=== PATIENT | male | born 1965 | race African-American/Black ===

== ENCOUNTER 2016-12-13 23:55 | Inpatient (IN) | payer OTHER ==
[~2016-12-13] VITALS: Ht 172.7 cm; Wt 118.3 kg
[2016-12-14 01:13] LABS: HEMATOCRIT 35.5 % (38.0-50.0); MCH 32.1 PG (29.0-34.0); MCHC 32.4 G/DL (30.0-36.0); MCV 99.2 FL (86-99); MEAN PLAT.VOLUME 10.9 uM^3 (9.0-12.4); PLATELET COUNT 188 K/uL (156-360); RBC DIS.WIDTH-CV 12.1 % (11.8-14.6); RBC DIS.WIDTH-SD 44.3 % (39-53); RED BLOOD COUNT 3.58 M/uL (4.00-5.50); WHITE BLOOD COUNT 14.1 K/uL (4.1-10.2)
[2016-12-14 01:19] LABS: CHLORIDE 102 mEq/L (99-109); POTASSIUM 3.5 mEq/L (3.7-5.4); SODIUM 137 mEq/L (136-147)
[2016-12-14 01:20] LABS: GLUCOSE 126 mg/dL (70-99)
[2016-12-14 01:22] LABS: ANION GAP 7 MEQ/L (2-14)
[2016-12-14 01:24] LABS: GFR ESTIMATE (CALCULATED) > 59 mL/min/
[2016-12-14 01:25] LABS: UREA NITROGEN (BUN) 11 mg/dL (9-23)
[2016-12-14 02:36] LABS: ADD MIUA? NO; BILIRUBIN NEGATIVE; BLOOD NEGATIVE; COLOR YELLOW ((YELLOW)); GLUCOSE (STRIP) NEGATIVE; KETONES NEGATIVE; LEUKOCYTES NEGATIVE; NITRITE NEGATIVE; PROTEIN (STRIP) NEGATIVE; SPECIFIC GRAVITY 1.014 (1.000-1.030); UCUL ADDED? NO; UROBILINOGEN 0.2 MG/DL (0.2-1.0)
[2016-12-14 07:24] LABS: Estimated Average Glucose 105 mg/dL (70-123); HEMOGLOBIN A1c (GLYCOHEMOGLOB) 5.3 % HGB (Below 5.7)
[2016-12-14 08:09] LABS: ALKALINE PHOSPHATASE 48 IU/L (3-129); DIRECT BILIRUBIN 0.1 mg/dL (0.0-0.3); SAMPLE HEMOLYSIS CHECK 0; SAMPLE ICTERIC CHECK 0; SAMPLE LIPEMIA CHECK 0; TOTAL BILIRUBIN 0.4 MG/DL (0.0-1.0)
[2016-12-14] MEDS ORDERED: FLEXERIL10 MG PO (08:52)
[2016-12-14] MEDS ORDERED: ZOFRAN4 MG PO (08:56)
[2016-12-14] MEDS ORDERED: PERCOCET 7.51 TABLET PO (08:58)
[2016-12-14] MEDS ORDERED: NORVASC10 MG PO (09:00)
[2016-12-14] MEDS ORDERED: METFORMIN HCL500 MG PO (09:01)
[2016-12-14] MEDS ORDERED: LOPRESSOR50 MG PO (09:02)
[2016-12-14] MEDS ORDERED: HYDROCHLOROTHIA25 MG PO (09:03)
[2016-12-14] MEDS ORDERED: DICLOFENAC SODI75 MG PO (09:04)
[2016-12-14] MEDS ORDERED: NEURONTIN300 MG PO (09:05)
[2016-12-14] MEDS ORDERED: ZOCOR10 MG PO (09:06)
[2016-12-14] MEDS ORDERED: PROAIR HFA8.5 GM IH (09:08)
[2016-12-14 14:47] VITALS: BP 130/73
[2016-12-14 17:00] LABS: POINT-OF-CARE METER ID UU14117124
[2016-12-14 17:49] LABS: POINT-OF-CARE METER ID UU14208753
[2016-12-14 18:04] LABS: POINT-OF-CARE METER ID UU14149397
[2016-12-14 19:41] VITALS: BP 128/60
[2016-12-14 21:50] LABS: POINT-OF-CARE METER ID UU14149397
[2016-12-14 23:25] VITALS: BP 122/57
[2016-12-15 03:49] VITALS: BP 127/67
[2016-12-15 06:51] LABS: EOSINOPHIL (%) 2.3 % (0-5); EOSINOPHIL COUNT 0.3 K/uL (0-0.3); HEMATOCRIT 37.2 % (38.0-50.0); IMMATURE GRANULOCYTE (%) 0.6 % (0.0-0.7); IMMATURE GRANULOCYTE COUNT 0.1 K/uL; INSTRUMENT ABS NEUTROPHIL CT 7.4 K/uL; LYMPHOCYTE COUNT 1.8 K/uL (1.0-2.8); MCHC 31.5 G/DL (30.0-36.0); MCV 98.7 FL (86-99); MEAN PLAT.VOLUME 10.8 uM^3 (9.0-12.4); MONOCYTE (%) 12.2 % (3-12); MONOCYTE COUNT 1.3 K/uL (0-0.8); NEUTROPHIL (%) 67.6 % (45-76); NEUTROPHIL COUNT 7.4 K/uL (1.8-6.4); PLATELET COUNT 213 K/uL (156-360); RBC DIS.WIDTH-CV 11.9 % (11.8-14.6); RBC DIS.WIDTH-SD 43.5 % (39-53); RED BLOOD COUNT 3.77 M/uL (4.00-5.50); WHITE BLOOD COUNT 10.9 K/uL (4.1-10.2)
[2016-12-15 06:54] LABS: POINT-OF-CARE METER ID UU14117124
[2016-12-15 07:21] LABS: ANION GAP 7 MEQ/L (2-14); CHLORIDE 103 MEQ/L (99-109); GFR ESTIMATE (CALCULATED) > 59 mL/min/; POTASSIUM 3.9 MEQ/L (3.7-5.4); SAMPLE HEMOLYSIS CHECK 0; SAMPLE ICTERIC CHECK 0; SAMPLE LIPEMIA CHECK 0; SODIUM 142 MEQ/L (136-147); UREA NITROGEN (BUN) 11 mg/dL (9-23)
[2016-12-15 07:22] LABS: GLUCOSE 85 mg/dL (70-99)
[2016-12-15 08:14] VITALS: BP 142/66
[2016-12-15 12:12] LABS: POINT-OF-CARE METER ID UU14188577
[2016-12-15 12:35] VITALS: BP 137/65
[2016-12-15 13:54] LABS: POINT-OF-CARE METER ID UU14208753
[2016-12-15 15:46] VITALS: BP 163/86
[2016-12-15 16:23] LABS: POINT-OF-CARE METER ID UU14208753
[2016-12-15 19:31] VITALS: BP 142/65
[2016-12-15 21:34] LABS: POINT-OF-CARE METER ID UU14117124
[2016-12-15 22:13] LABS: POINT-OF-CARE METER ID UU14117124
[2016-12-15 23:40] VITALS: BP 133/70
[2016-12-16 06:06] LABS: EOSINOPHIL (%) 2.3 % (0-5); EOSINOPHIL COUNT 0.2 K/uL (0-0.3); HEMATOCRIT 37.1 % (38.0-50.0); IMMATURE GRANULOCYTE (%) 0.5 % (0.0-0.7); IMMATURE GRANULOCYTE COUNT 0.1 K/uL; INSTRUMENT ABS NEUTROPHIL CT 7.4 K/uL; LYMPHOCYTE COUNT 1.5 K/uL (1.0-2.8); MCH 31.2 PG (29.0-34.0); MCHC 32.1 G/DL (30.0-36.0); MCV 97.1 FL (86-99); MEAN PLAT.VOLUME 10.2 uM^3 (9.0-12.4); MONOCYTE (%) 13.4 % (3-12); MONOCYTE COUNT 1.4 K/uL (0-0.8); NEUTROPHIL (%) 69.5 % (45-76); NEUTROPHIL COUNT 7.4 K/uL (1.8-6.4); PLATELET COUNT 236 K/uL (156-360); RBC DIS.WIDTH-CV 11.9 % (11.8-14.6); RBC DIS.WIDTH-SD 42.4 % (39-53); RED BLOOD COUNT 3.82 M/uL (4.00-5.50); WHITE BLOOD COUNT 10.6 K/uL (4.1-10.2)
[2016-12-16 06:28] LABS: ANION GAP 9 MEQ/L (2-14); CHLORIDE 106 MEQ/L (99-109); GFR ESTIMATE (CALCULATED) > 59 mL/min/; GLUCOSE 104 mg/dL (70-99); MAGNESIUM 2.1 mg/dl (1.3-2.7); POTASSIUM 3.9 MEQ/L (3.7-5.4); SAMPLE HEMOLYSIS CHECK 0; SAMPLE ICTERIC CHECK 0; SAMPLE LIPEMIA CHECK 0; SODIUM 144 MEQ/L (136-147); UREA NITROGEN (BUN) 12 mg/dL (9-23)
[2016-12-16 06:29] LABS: POINT-OF-CARE METER ID UU14188577
[2016-12-16 07:27] VITALS: BP 157/82
[2016-12-16 11:41] LABS: POINT-OF-CARE METER ID UU14208753
[2016-12-16 15:33] VITALS: BP 156/81
[2016-12-16 16:21] LABS: POINT-OF-CARE METER ID UU14149397
[2016-12-16 21:13] LABS: POINT-OF-CARE METER ID UU14117124
[2016-12-16 23:39] VITALS: BP 148/75
[2016-12-17 05:52] LABS: BASOPHIL COUNT 0.1 K/uL (0-0.1); EOSINOPHIL (%) 2.6 % (0-5); EOSINOPHIL COUNT 0.3 K/uL (0-0.3); HEMATOCRIT 36.6 % (38.0-50.0); IMMATURE GRANULOCYTE (%) 0.5 % (0.0-0.7); IMMATURE GRANULOCYTE COUNT 0.1 K/uL; INSTRUMENT ABS NEUTROPHIL CT 8.4 K/uL; LYMPHOCYTE COUNT 1.7 K/uL (1.0-2.8); MCH 31.6 PG (29.0-34.0); MCHC 32.2 G/DL (30.0-36.0); MCV 97.9 FL (86-99); MEAN PLAT.VOLUME 10.4 uM^3 (9.0-12.4); MONOCYTE (%) 13.5 % (3-12); MONOCYTE COUNT 1.6 K/uL (0-0.8); NEUTROPHIL (%) 69.4 % (45-76); NEUTROPHIL COUNT 8.4 K/uL (1.8-6.4); PLATELET COUNT 231 K/uL (156-360); RBC DIS.WIDTH-CV 12.1 % (11.8-14.6); RBC DIS.WIDTH-SD 43.9 % (39-53); RED BLOOD COUNT 3.74 M/uL (4.00-5.50); WHITE BLOOD COUNT 12.1 K/uL (4.1-10.2)
[2016-12-17 06:45] LABS: POINT-OF-CARE METER ID UU14117124
[2016-12-17 06:55] LABS: ANION GAP 11 MEQ/L (2-14); CHLORIDE 106 MEQ/L (99-109); GFR ESTIMATE (CALCULATED) > 59 mL/min/; GLUCOSE 101 mg/dL (70-99); MAGNESIUM 2.2 mg/dl (1.3-2.7); POTASSIUM 4.1 MEQ/L (3.7-5.4); SAMPLE HEMOLYSIS CHECK 0; SAMPLE ICTERIC CHECK 0; SAMPLE LIPEMIA CHECK 0; SODIUM 144 MEQ/L (136-147); UREA NITROGEN (BUN) 15 mg/dL (9-23)
[2016-12-17 06:56] LABS: VANCOMYCIN, TROUGH 16.9 MCG/ML (10-20)
[2016-12-17 07:29] VITALS: BP 135/67
[2016-12-17 10:47] LABS: C-REACTIVE PROTEIN 122.3 MG/L (0-10)
[2016-12-17 11:47] LABS: POINT-OF-CARE METER ID UU14117124
[2016-12-17 16:11] VITALS: BP 162/77
[2016-12-17 16:59] LABS: POINT-OF-CARE METER ID UU14149397
[2016-12-17 22:38] LABS: POINT-OF-CARE METER ID UU14208753
[2016-12-17 23:28] VITALS: BP 132/63
[2016-12-18 07:07] LABS: POINT-OF-CARE METER ID UU14208753
[2016-12-18 08:19] VITALS: BP 144/74
[2016-12-18 11:19] LABS: POINT-OF-CARE METER ID UU14149397
[2016-12-18 12:45] LABS: POINT-OF-CARE METER ID UU14117124
[2016-12-18 16:15] LABS: POINT-OF-CARE METER ID UU14208753
[2016-12-18 16:39] VITALS: BP 134/76
== END 2016-12-18 20:57 | disposition home or self-care (01) | DRG 863 ==
LOC: EME 23:55 → 3EAST 12-14 04:00 → EDOF 12-14 04:00 → ENRESERV 12-14 04:00 → 3EAST 12-14 14:32
PROVIDERS: Emergency Medicine; Hospitalist; Internal Medicine
DX: T81.4XXA Infection following a procedure, initial encounter (principal); L03.312 Cellulitis of back [any part except buttock and flank]; Y83.8 Other surgical procedures as the cause of abnormal reaction of the patient, or of later complication, without mention of misadventure at the time of the procedure; E87.6 Hypokalemia; R50.82 Postprocedural fever; J98.11 Atelectasis; E11.9 Type 2 diabetes mellitus without complications; I10 Essential (primary) hypertension; E78.5 Hyperlipidemia, unspecified; G47.33 Obstructive sleep apnea (adult) (pediatric); D86.9 Sarcoidosis, unspecified; D64.9 Anemia, unspecified; E66.01 Morbid (severe) obesity due to excess calories; Z68.39 Body mass index [BMI] 39.0-39.9, adult; Z79.84 Long term (current) use of oral hypoglycemic drugs
CPT/HCPCS: 71020; 72158; 76937; 80048; 80076; 80202; 81003; 82948; 83036; 83605; 83735; 85025; 85027; 86140; 87040; 87070; 87075; 87205; 94640; 94660; 99202; 99281; 99285; J0696; J1650; J1815; J1885; J2543; J3370; J7030; J7050